=== PATIENT | female | born 1985 | race Caucasian/White ===

== ENCOUNTER 2016-07-20 20:35 | Emergency (ER) | payer OTHER ==
[2016-07-20] MEDS ORDERED: OPTIRAY 350 100 ML VIAL HMH IV ONE (20:36)
[2016-07-20] MEDS ORDERED: SODIUM CHLORIDE 0.9% 1,000 ML ONE (20:52)
[2016-07-20] MEDS ORDERED: ONDANSETRON 4 MG VIAL ONE ×2 (20:53→21:56)
[2016-07-21] MEDS ORDERED: MORPHINE 4 MG/ML SYR ONE (00:25)
== END 2016-07-21 01:03 | disposition home or self-care (01) ==
LOC: ER 20:35
DX: K52.9 Noninfective gastroenteritis and colitis, unspecified (principal); R93.5 Abnormal findings on diagnostic imaging of other abdominal regions, including retroperitoneum; F17.200 Nicotine dependence, unspecified, uncomplicated
CPT/HCPCS: 36415; 74022; 74177; 80053; 81001; 83630; 83690; 84703; 85025; 87045; 87046; 87177; 87493; 87804; 96361; 96374; 96375; 96376; 99285; J2270; J2405; Q9967